=== PATIENT | male | born 1995 | race African-American/Black ===

== ENCOUNTER 2017-04-09 18:47 | Emergency (ER) | payer OTHER ==
[~2017-04-09] VITALS: Ht 182.9 cm; Wt 75.0 kg
[2017-04-09 18:51] VITALS: BP 124/73
== END 2017-04-09 23:57 | disposition left against medical advice (07) ==
LOC: ER 22:02
DX: Z53.21 Procedure and treatment not carried out due to patient leaving prior to being seen by health care provider (principal)

== ENCOUNTER 2017-05-24 10:36 | Emergency (ER) | payer OTHER ==
[~2017-05-24] VITALS: Ht 182.9 cm; Wt 67.0 kg
[2017-05-24 10:42] VITALS: BP 121/72
== END 2017-05-24 11:40 | disposition home or self-care (01) ==
LOC: ER 10:36
DX: Z00.00 Encounter for general adult medical examination without abnormal findings (principal); F12.10 Cannabis abuse, uncomplicated
CPT/HCPCS: 99281

== ENCOUNTER 2018-03-23 19:59 | Emergency (ER) | payer OTHER ==
[~2018-03-23] VITALS: Ht 185.4 cm; Wt 74.5 kg
[2018-03-23] MEDS ORDERED: IBUPROFEN 600MG TABLET PO ONE (21:15)
[2018-03-23 21:59] VITALS: BP 114/67
== END 2018-03-23 22:02 | disposition home or self-care (01) ==
LOC: ER 19:59
DX: S16.1XXA Strain of muscle, fascia and tendon at neck level, initial encounter (principal); H61.23 Impacted cerumen, bilateral; F41.9 Anxiety disorder, unspecified; F12.10 Cannabis abuse, uncomplicated; X58.XXXA Exposure to other specified factors, initial encounter; Y93.89 Activity, other specified; Y92.89 Other specified places as the place of occurrence of the external cause; Y99.8 Other external cause status
CPT/HCPCS: 99283; Z7610

== ENCOUNTER 2020-05-21 19:39 | Emergency (ER) | payer OTHER ==
[~2020-05-21] VITALS: Ht 182.9 cm; Wt 79.0 kg
[2020-05-21 20:41] VITALS: BP 116/87
[2020-05-21] MEDS ORDERED: IBUPROFEN 600MG TABLET PO ONE (20:45)
== END 2020-05-21 21:17 | disposition home or self-care (01) ==
LOC: ER 19:39
DX: H66.91 Otitis media, unspecified, right ear (principal); Z04.89 Encounter for examination and observation for other specified reasons; F12.10 Cannabis abuse, uncomplicated; Z91.018 Allergy to other foods
CPT/HCPCS: 99282

== ENCOUNTER 2020-06-04 16:09 | Emergency (ER) | payer OTHER ==
[~2020-06-04] VITALS: Ht 182.9 cm; Wt 79.0 kg
[2020-06-04] MEDS ORDERED: IBUPROFEN 600MG TABLET PO ONE (19:15)
[2020-06-04 19:53] VITALS: BP 130/80
== END 2020-06-04 19:54 | disposition home or self-care (01) ==
LOC: ER 16:09
DX: M54.5 Low back pain (principal); Z76.0 Encounter for issue of repeat prescription; Z04.89 Encounter for examination and observation for other specified reasons; F12.10 Cannabis abuse, uncomplicated; Z91.018 Allergy to other foods
CPT/HCPCS: 99282

== ENCOUNTER 2022-01-18 18:58 | Emergency (ER) | payer OTHER ==
[~2022-01-18] VITALS: Ht 182.9 cm; Wt 78.0 kg
[2022-01-18] MEDS ORDERED: MAGNESIUM/ALUMINUM HYDROXIDE/SIMETHICONE 30ML UDC PO STA (19:49)
[2022-01-18] MEDS ORDERED: IBUPROFEN 600MG TABLET PO STA (19:49)
[2022-01-18 20:18] LABS: BASOPHILS % 0.4 % (0.0-2.0); EOSINOPHILS % 1.3 % (0.0-5.0); HEMATOCRIT. 46.1 % (42.0-52.0); HEMOGLOBIN. 15.7 g/dL (14.0-18.0); MEAN CORPUSCULAR HEMOGLOBIN 32.1 pg (28.0-32.0); MEAN CORPUSCULAR VOLUME 94.4 fL (80.0-94.0); MEAN PLATELET VOLUME 7.8 fl (7.4-10.4); MONOCYTES % 10.3 % (2.0-8.0); PLATELET 176 x1000/uL (130-400); RED BLOOD CELL COUNT 4.88 mill/uL (4.7-6.1); RED CELL DISTRIBUTION WIDTH 13.2 % (11.6-14.6)
[2022-01-18 20:29] LABS: CLARITY URINE CLEAR (CLEAR); COLOR URINE DARK YELLOW (YELLOW); KETONES URINE TRACE (NEGATIVE); LEUKOCYTE ESTERASE URINE NEGATIVE (NEGATIVE); NITRITE URINE NEGATIVE (NEGATIVE); OCCULT BLOOD URINE NEGATIVE (NEGATIVE); PH URINE 5.5 (4.5-8.0); PROTEIN URINE 2+ (NEGATIVE); SPECIFIC GRAVITY URINE 1.031 (1.005-1.030)
[2022-01-18 20:30] VITALS: BP 128/89
[2022-01-18 20:35] LABS: CHLORIDE 105 mEq/L (98-107)
[2022-01-18 20:44] LABS: ETHANOL BLOOD < 10 mg/dL
[2022-01-18 20:54] LABS: *AMPHETAMINES SCREEN URINE NEGATIVE (NEGATIVE); *BARBITURATES SCREEN URINE NEGATIVE (NEGATIVE); *BENZODIAZEPINES SCREEN URINE NEGATIVE (NEGATIVE); *COCAINE SCREEN URINE NEGATIVE (NEGATIVE); CANNABINOID URINE SCREEN PRESUMTIVE POSITIVE (NEGATIVE); METHADONE URINE SCREEN NEGATIVE (NEGATIVE); OPIATES URINE SCREEN NEGATIVE (NEGATIVE); PHENCYCLIDINE URINE SCREEN NEGATIVE (NEGATIVE)
[2022-01-18] MEDS ORDERED: ONDANSETRON 4MG ODT PO ONE (21:30)
== END 2022-01-18 20:09 | disposition home or self-care (01) ==
LOC: ER 18:58
DX: R10.84 Generalized abdominal pain (principal); Z91.018 Allergy to other foods
CPT/HCPCS: 36415; 80053; 80305; 80320; 81003; 83690; 85025; 99284; Q0162; G0480

== ENCOUNTER 2023-07-03 18:29 | Emergency (ER) | payer OTHER ==
[~2023-07-03] VITALS: Ht 188 cm; Wt 74.0 kg
[2023-07-03 18:33] VITALS: O2SAT 97
[2023-07-03 19:50] LABS: BASOPHILS % 0.7 % (0.0-2.0); EOSINOPHILS % 1.3 % (0.0-5.0); HEMATOCRIT. 45.8 % (42.0-52.0); HEMOGLOBIN. 15.5 g/dL (14.0-18.0); LYMPHOCYTES % 24.8 % (20.0-50.0); MEAN CORPUSCULAR HEMOGLOBIN 32.4 pg (28.0-32.0); MEAN CORPUSCULAR HGB CONC 33.9 g/dL (31.0-37.0); MEAN CORPUSCULAR VOLUME 95.6 fL (80.0-94.0); MEAN PLATELET VOLUME 7.8 fl (7.4-10.4); MONOCYTES % 9.7 % (2.0-8.0); NEUTROPHILS % 63.5 % (40.0-76.0); PLATELET 201 x1000/uL (130-400); RED BLOOD CELL COUNT 4.79 mill/uL (4.7-6.1); WHITE BLOOD COUNT 4.8 x1000/uL (4.5-11.0)
[2023-07-03 19:56] LABS: ALANINE AMINOTRANSFERASE 17 IU/L (10-49); ALBUMIN 4.2 g/dL (3.2-4.8); ASPARTATE AMINOTRANSFERASE 21 IU/L (<34); BILIRUBIN TOTAL 0.8 mg/dL (0.1-1.0); CALCIUM 9.6 mg/dL (8.7-10.4); CARBON DIOXIDE 29 mEq/L (21-32); CHLORIDE 107 mEq/L (98-107); GLUCOSE 150 mg/dL (70-105); POTASSIUM 3.6 mEq/L (3.5-5.1); PROTEIN TOTAL 7.3 g/dL (6.0-8.3); SODIUM 139 mEq/L (136-145); UREA NITROGEN BLOOD 12 mg/dL (9-23)
[2023-07-03 20:34] LABS: ETHANOL BLOOD < 10 mg/dL (<10)
[2023-07-03 22:57] VITALS: BP 112/78; PULSE 75; RESP 16; TEMP 97.5
== END 2023-07-03 23:04 | disposition home or self-care (01) ==
LOC: ER 18:29
DX: R10.9 Unspecified abdominal pain (principal); F12.90 Cannabis use, unspecified, uncomplicated; Z91.018 Allergy to other foods
CPT/HCPCS: 36415; 80053; 80320; 85025; 99283; G0480

== ENCOUNTER 2023-10-26 22:32 | Emergency (ER) | payer OTHER ==
[~2023-10-26] VITALS: Ht 182.9 cm; Wt 78.4 kg
[2023-10-26 23:59] VITALS: O2SAT 99
[2023-10-27] MEDS ORDERED: AMOX500T2 MT (01:59)
[2023-10-27] MEDS ORDERED: IBUP-2030 MT (01:59)
[2023-10-27] MEDS: HYDROCODONE/ACETAMINOPHEN 5/325MG TABLET PO ONE (02:00)
[2023-10-27] MEDS ORDERED: KETOROLAC 30MG/ML VIAL IM ONE (02:00)
[2023-10-27 02:20] VITALS: BP 129/80; PULSE 80; RESP 18; TEMP 97
== END 2023-10-27 02:26 | disposition home or self-care (01) ==
LOC: ER 22:32
DX: K04.7 Periapical abscess without sinus (principal); K08.89 Other specified disorders of teeth and supporting structures; F12.10 Cannabis abuse, uncomplicated
CPT/HCPCS: 99283

== ENCOUNTER 2025-04-26 01:21 | Emergency (ER) | payer OTHER ==
[~2025-04-26] VITALS: Ht 177.8 cm; Wt 90.0 kg
[~2025-04-26 01:21] MED LIST: AMOX500T2 MT; IBUP-2030 MT
[2025-04-26 01:37] VITALS: O2SAT 96
[2025-04-26] MEDS: IBUPROFEN 600MG TABLET PO ONE (02:45)
[2025-04-26] MEDS ORDERED: IBUP-1455 MT (03:29)
[2025-04-26 03:50] VITALS: BP 120/75; PULSE 82; RESP 18; TEMP 36.9; O2SAT 97
== END 2025-04-26 03:50 | disposition home or self-care (01) ==
LOC: ER 01:21
DX: S82.891A Other fracture of right lower leg, initial encounter for closed fracture (principal); W19.XXXA Unspecified fall, initial encounter; Y93.89 Activity, other specified; Y92.89 Other specified places as the place of occurrence of the external cause; Y99.8 Other external cause status
CPT/HCPCS: 29515; 73610; 99283

== ENCOUNTER 2025-04-30 09:33 | Emergency (ER) | payer OTHER ==
[~2025-04-30] VITALS: Ht 182.9 cm; Wt 88.0 kg
[~2025-04-30 09:33] MED LIST changes: +IBUP-1455 MT
[2025-04-30 10:06] VITALS: O2SAT 99
[2025-04-30] MEDS ORDERED: IBUP-2030 MT (11:28)
[2025-04-30] MEDS: IBUPROFEN 800MG TABLET PO ONE (11:34)
[2025-04-30 11:45] VITALS: BP 130/87; PULSE 77; RESP 16; TEMP 36.7; O2SAT 100
== END 2025-04-30 11:50 | disposition home or self-care (01) ==
LOC: ER 09:33
DX: S82.401A Unspecified fracture of shaft of right fibula, initial encounter for closed fracture (principal); X58.XXXA Exposure to other specified factors, initial encounter; Y93.89 Activity, other specified; Y92.89 Other specified places as the place of occurrence of the external cause; Y99.8 Other external cause status
CPT/HCPCS: 99283; 29515; A6449